=== PATIENT | male | born 1955 | race African-American/Black ===

== ENCOUNTER 2020-01-24 12:00 | Outpatient (RCR) | payer OTHER | END 2020-01-26 | LOC: ST 12:00 | PROVIDERS: ATTEND Family Medicine | DX: R47.02 Dysphasia (principal); I63.50 Cerebral infarction due to unspecified occlusion or stenosis of unspecified cerebral artery; Z86.73 Personal history of transient ischemic attack (TIA), and cerebral infarction without residual deficits | CPT/HCPCS: 92523 ==

== ENCOUNTER 2020-02-05 11:00 | Outpatient (RCR) | payer OTHER ==
--- NOTE | 2020-02-11 11:25 | NUR ---
ST NOTE: Pt no show for speech therapy, will phone to see if he wishes to continue therapy or defer further treatment at this time
== END 2020-02-26 ==
LOC: ST 11:00
PROVIDERS: ATTEND Family Medicine
DX: R47.02 Dysphasia (principal); I69.322 Dysarthria following cerebral infarction; I63.50 Cerebral infarction due to unspecified occlusion or stenosis of unspecified cerebral artery

== ENCOUNTER → 2020-08-05 | Day surgery (SDC) | payer OTHER ==
[2020-07-31 09:33] LABS: BASOPHILS % 0.9 % (0.0-1.0); EOSINOPHILS # (AUTO) 0.1 (0.0-0.4); EOSINOPHILS % 2.4 % (0.0-6.0); HEMATOCRIT 37.5 % (38.2-49.6); HEMOGLOBIN 12.1 g/dL (14.0-18.0); LYMPHOCYTES # (AUTO) 0.7 (1.0-3.2); LYMPHOCYTES % 15.2 % (18.0-39.1); MEAN CORPUSCULAR HEMOGLOBIN 25.3 pg (28-32); MEAN CORPUSCULAR HGB CONC 32.3 g/dL (31-35); MEAN CORPUSCULAR VOLUME 78.5 fL (81-99); MONOCYTES # (AUTO) 0.4 (0.2-0.8); MONOCYTES % 9.2 % (4.4-11.3); NEUTROPHILS # (AUTO) 3.4 (2.1-6.9); NEUTROPHILS % 72.1 % (38.7-80.0); PLATELET COUNT 206 x10e3/uL (140-360); RED BLOOD COUNT 4.78 x10e6/uL (4.3-5.7); RED CELL DISTRIBUTION WIDTH 13.2 % (11.7-14.4)
[~2020-08-05] MED LIST: ASPIRIN81 MG PO; CARVEDILOL12.5 MG PO; CLOPIDOGREL75 MG PO; ESCITALOPRAM PO; EUTHYROX50 MCG PO; FENTANYL CITRATE/PF 100MCG/2 ML INJ ONE; GINKGO BILOBA40 M1 PEG; LISINOPRIL10 MG PO; MAGNESIUM CITR296 ML PO; METFORMIN HCL500 MG PO; MIDAZOLAM HCL 2 MG/2 ML VIAL ONE; MIRALAX17 GM PO; PROPOFOL IV EMULSION 10 MG/ML 20 ML VIAL ONE; PROTONIX20 MG PO; RISPERDAL0.5 MG PO
[2020-08-05 09:40] VITALS: BP 150/85
--- NOTE | 2020-08-05 11:59 | Operative Report ---
DATE OF PROCEDURE: SURGEON: Willie Toribio MD NAME OF THE PROCEDURES: EGD, colonoscopy. PREPROCEDURE DIAGNOSIS: The patient with history of anemia, constipation, and weight loss. Therefore, an EGD, colonoscopy to rule out peptic ulcer disease, upper and lower GI neoplasm, and colorectal neoplasm. DESCRIPTION OF PROCEDURE: After informed written consent, premedications with monitored anesthesia care, standard adult video Olympus gastroscope was introduced into the mouth, esophagus, and stomach into the 2nd portion of the duodenum. First and second portions of the duodenum appeared to be normal. Biopsies were done to rule out malabsorption. Antrum showed mild gastritis and biopsies were done antrum and body unremarkable. The lower esophagus showed irregular Z-line and biopsies were done. There was a question of Schatzki ring, but patient was asymptomatic. IMPRESSION: Gastritis, questionable Schatzki ring. PROCEDURE: Colonoscopy. DESCRIPTION OF PROCEDURE: Standard video Olympus colonoscope was introduced into the rectum and all the way into the terminal ileum. Terminal ileum and appendiceal orifice appeared to be normal. Cecum showed 8 mm sessile polyp, removed by cold snare and two Endoclips were placed for hemostasis. The rest of the ascending, transverse, descending, sigmoid, and rectum all appeared to be within normal. IMPRESSION: Colon polyp, gastritis. RECOMMENDATION: Avoid NSAID. Consider H2 jess depending on biopsy results and the patient's clinical course. Colonoscopy in three years. The patient to hold Plavix for 72 hours and he has been advised to come and see us in the office in three weeks for followup. If the symptoms persist, CT and further evaluation may be recommended. Continue close followup with the primary care physician is also advised. Willie Toribio MD SR/MODL /[id number]
== END | disposition home or self-care (01) ==
LOC: OR 06:51
PROVIDERS: ATTEND Internal Medicine Gastroenterology
DX: K29.70 Gastritis, unspecified, without bleeding (principal); K63.5 Polyp of colon; K21.9 Gastro-esophageal reflux disease without esophagitis; R63.4 Abnormal weight loss; D64.9 Anemia, unspecified; Z01.89 Encounter for other specified special examinations; K59.00 Constipation, unspecified; R13.10 Dysphagia, unspecified; Z86.010 Personal history of colon polyps; E11.9 Type 2 diabetes mellitus without complications; E66.3 Overweight; Z68.28 Body mass index [BMI] 28.0-28.9, adult; Z71.3 Dietary counseling and surveillance; Z87.891 Personal history of nicotine dependence; Z86.73 Personal history of transient ischemic attack (TIA), and cerebral infarction without residual deficits; G24.01 Drug induced subacute dyskinesia; E03.9 Hypothyroidism, unspecified; G47.33 Obstructive sleep apnea (adult) (pediatric); F03.90 Unspecified dementia, unspecified severity, without behavioral disturbance, psychotic disturbance, mood disturbance, and anxiety; I25.2 Old myocardial infarction; I10 Essential (primary) hypertension; Z88.5 Allergy status to narcotic agent; Z11.59 Encounter for screening for other viral diseases; Z01.812 Encounter for preprocedural laboratory examination; Z01.810 Encounter for preprocedural cardiovascular examination
CPT/HCPCS: 36415 ×2; 43239; 45385; 82948; 85025; 93005; J2250; J2704; J3010; U0002; 45378

== ENCOUNTER 2022-08-18 10:57 | Emergency (ER) | payer MEDICARE ==
[~2022-08-18] VITALS: Ht 170.2 cm; Wt 72.6 kg
[~2022-08-18 10:57] MED LIST changes: +ASPIRIN81 MG PEG; -ASPIRIN81 MG PO; -FENTANYL CITRATE/PF 100MCG/2 ML INJ ONE; +METFORMIN HCL500 MG PEG; -METFORMIN HCL500 MG PO; -MIDAZOLAM HCL 2 MG/2 ML VIAL ONE; -PROPOFOL IV EMULSION 10 MG/ML 20 ML VIAL ONE
[2022-08-18] MEDS ORDERED: ARTIFICIAL TEAR15 ML OU (11:48)
[2022-08-18] MEDS ORDERED: METOPROLOL TART25 MG PEG (11:48)
[2022-08-18] MEDS ORDERED: HEPARIN SO5000 UNIT2 SQ (11:48)
[2022-08-18] MEDS ORDERED: HYDROCODON-ACE1 EA12 PEG (11:48)
[2022-08-18] MEDS ORDERED: LANTUS 3ML100 UNITS/ SQ (11:48)
[2022-08-18] MEDS ORDERED: NEURIVA PLUS B1 EACH PEG (11:48)
[2022-08-18] MEDS ORDERED: INGREZZA40 MG PEG (11:48)
[2022-08-18] MEDS ORDERED: ZESTORETIC 20-1 EACH PEG (11:48)
[2022-08-18] MEDS ORDERED: MULTIPLE VITAM1 EAC1 PEG (11:48)
[2022-08-18] MEDS ORDERED: FLONASE ALLERG9.9 ML INH (11:48)
[2022-08-18] MEDS ORDERED: AMIODARONE HCL200 MG PEG (11:48)
[2022-08-18] MEDS ORDERED: ATIVAN0.5 MG PEG (11:48)
[2022-08-18] MEDS ORDERED: PRAVASTATIN SOD40 MG PEG (11:48)
[2022-08-18] MEDS ORDERED: IPRAT-ALBUT 0.5-3 ML INH (11:48)
== END 2022-08-18 14:21 | disposition home or self-care (01) ==
LOC: ER 11:11
DX: M25.421 Effusion, right elbow (principal); M25.521 Pain in right elbow; I10 Essential (primary) hypertension; E11.9 Type 2 diabetes mellitus without complications; E03.9 Hypothyroidism, unspecified; F41.9 Anxiety disorder, unspecified
CPT/HCPCS: 93931; 93971; 99283

== ENCOUNTER 2022-08-18 22:49 | Emergency (ER) | payer MEDICARE, OTHER ==
[~2022-08-18] VITALS: Ht 170.2 cm; Wt 72.6 kg
[~2022-08-18 22:49] MED LIST changes: +AMIODARONE HCL200 MG PEG; +ARTIFICIAL TEAR15 ML OU; +ATIVAN0.5 MG PEG; +FLONASE ALLERG9.9 ML INH; +HEPARIN SO5000 UNIT2 SQ; +HYDROCODON-ACE1 EA12 PEG; +INGREZZA40 MG PEG; +IPRAT-ALBUT 0.5-3 ML INH; +LANTUS 3ML100 UNITS/ SQ; +METOPROLOL TART25 MG PEG; +MULTIPLE VITAM1 EAC1 PEG; +NEURIVA PLUS B1 EACH PEG; +PRAVASTATIN SOD40 MG PEG; +ZESTORETIC 20-1 EACH PEG
== END 2022-08-18 23:13 | disposition home or self-care (01) ==
LOC: ER 23:00
DX: Z43.1 Encounter for attention to gastrostomy (principal); I10 Essential (primary) hypertension; E11.9 Type 2 diabetes mellitus without complications; E03.9 Hypothyroidism, unspecified; F41.9 Anxiety disorder, unspecified; M24.59 Contracture, other specified joint; Z86.73 Personal history of transient ischemic attack (TIA), and cerebral infarction without residual deficits
CPT/HCPCS: 43762; 99282

== ENCOUNTER 2023-01-19 00:24 | Emergency (ER) | payer MEDICARE, OTHER ==
[~2023-01-19] VITALS: Ht 170.2 cm; Wt 72.6 kg
[2023-01-19] MEDS ORDERED: DIATRIZOATE MEGL/DIATRIZOA SOD 30 ML BTL PO ONE (04:27)
[2023-01-19] MEDS ORDERED: METHYLPREDNISOLONE SOD SUCC 125 MG/2ML VIAL IV ONE (05:15)
[2023-01-19] MEDS ORDERED: ALBUTEROL/IPRATROPIUM 3 ML NEB NEB PRN (05:15)
[2023-01-19] MEDS ORDERED: SODIUM CHLORIDE FLUSH 10 ML SYR IV PRN (06:00)
== END 2023-01-19 06:14 ==
LOC: ER 00:33
DX: Z43.1 Encounter for attention to gastrostomy (principal); I10 Essential (primary) hypertension; E11.9 Type 2 diabetes mellitus without complications; E03.9 Hypothyroidism, unspecified; F41.9 Anxiety disorder, unspecified; Z86.73 Personal history of transient ischemic attack (TIA), and cerebral infarction without residual deficits
CPT/HCPCS: 43762; 74018; 99284; Q9963

== ENCOUNTER 2023-01-21 17:57 | Emergency (ER) | payer MEDICARE, OTHER ==
[~2023-01-21] VITALS: Ht 170.2 cm; Wt 72.6 kg
[2023-01-21] MEDS ORDERED: DIATRIZOATE MEGL/DIATRIZOA SOD 30 ML BTL PO ONE (18:27)
== END 2023-01-21 18:24 | disposition home or self-care (01) ==
LOC: ER 18:09
DX: Z43.1 Encounter for attention to gastrostomy (principal); I69.320 Aphasia following cerebral infarction; I10 Essential (primary) hypertension; E11.9 Type 2 diabetes mellitus without complications; E03.9 Hypothyroidism, unspecified; F41.8 Other specified anxiety disorders
CPT/HCPCS: 74018; 99283; Q9963

== ENCOUNTER 2023-01-22 22:14 | Emergency (ER) | payer MEDICARE, OTHER ==
[~2023-01-22] VITALS: Ht 170.2 cm; Wt 72.6 kg
== END 2023-01-22 22:31 | disposition home or self-care (01) ==
LOC: ER 22:16
DX: Z43.1 Encounter for attention to gastrostomy (principal); I10 Essential (primary) hypertension; E11.9 Type 2 diabetes mellitus without complications; E03.9 Hypothyroidism, unspecified; F41.9 Anxiety disorder, unspecified; Z86.73 Personal history of transient ischemic attack (TIA), and cerebral infarction without residual deficits
CPT/HCPCS: 99283

== ENCOUNTER 2023-01-23 16:58 | Inpatient (IN) | payer MEDICARE, OTHER ==
[~2023-01-23] VITALS: Ht 170.2 cm; Wt 72.6 kg
[2023-01-23] MEDS ORDERED: DIATRIZOATE MEGL/DIATRIZOA SOD 30 ML BTL PO ONE (18:00)
[2023-01-23] MEDS ORDERED: SODIUM CHLORIDE 0.9% 1000ML 1,000 ML IV SCH ×2 (18:00→21:00)
[2023-01-23 18:21] LABS: BASOPHILS % 0.5 % (0.0-1.0); EOSINOPHILS # (AUTO) 0.1 (0.0-0.4); EOSINOPHILS % 1.8 % (0.0-6.0); HEMATOCRIT 32.8 % (38.2-49.6); HEMOGLOBIN 10.1 g/dL (14.0-18.0); LYMPHOCYTES # (AUTO) 0.6 (1.0-3.2); LYMPHOCYTES % 10.7 % (18.0-39.1); MEAN CORPUSCULAR HEMOGLOBIN 26.7 pg (28-32); MEAN CORPUSCULAR HGB CONC 30.8 g/dL (31-35); MEAN CORPUSCULAR VOLUME 86.8 fL (81-99); MONOCYTES # (AUTO) 0.3 (0.2-0.8); MONOCYTES % 6.1 % (4.4-11.3); NEUTROPHILS # (AUTO) 4.5 (2.1-6.9); NEUTROPHILS % 80.7 % (38.7-80.0); PLATELET COUNT 199 x10e3/uL (140-360); RED BLOOD COUNT 3.78 x10e6/uL (4.3-5.7); RED CELL DISTRIBUTION WIDTH 14.5 % (11.7-14.4)
[2023-01-23 18:47] LABS: ALBUMIN 3.6 g/dL (3.5-5.0); ALBUMIN/GLOBULIN RATIO 1.1 (0.8-2.0); ANION GAP 13.1 mmol/L (8-16); CALCIUM 9.3 mg/dL (8.4-10.2); CREATININE, SERUM 1.17 mg/dL (0.72-1.25); POTASSIUM 4.1 mmol/L (3.5-5.1)
[2023-01-23 20:00] VITALS: BP 148/77
[2023-01-23 21:00] VITALS: BP 148/77
[2023-01-24] VITALS (8 sets, daily range): BP systolic 139–177; BP diastolic 71–101
[2023-01-24] MEDS ORDERED: HYDROCHLOROTHIA25 MG PEG (04:01)
[2023-01-24] MEDS ORDERED: LISINOPRIL10 MG PEG (04:01)
[2023-01-24] MEDS ORDERED: SYNTHROID50 MCG PEG (04:01)
[2023-01-24 06:01] LABS: BASOPHILS % 0.7 % (0.0-1.0); EOSINOPHILS # (AUTO) 0.1 (0.0-0.4); EOSINOPHILS % 2.1 % (0.0-6.0); HEMATOCRIT 30.8 % (38.2-49.6); HEMOGLOBIN 9.6 g/dL (14.0-18.0); LYMPHOCYTES # (AUTO) 0.7 (1.0-3.2); LYMPHOCYTES % 15.7 % (18.0-39.1); MEAN CORPUSCULAR HEMOGLOBIN 26.9 pg (28-32); MEAN CORPUSCULAR HGB CONC 31.2 g/dL (31-35); MEAN CORPUSCULAR VOLUME 86.3 fL (81-99); MONOCYTES # (AUTO) 0.4 (0.2-0.8); MONOCYTES % 8.4 % (4.4-11.3); NEUTROPHILS # (AUTO) 3.1 (2.1-6.9); NEUTROPHILS % 72.9 % (38.7-80.0); PLATELET COUNT 170 x10e3/uL (140-360); RED BLOOD COUNT 3.57 x10e6/uL (4.3-5.7); RED CELL DISTRIBUTION WIDTH 14.4 % (11.7-14.4)
[2023-01-24 06:17] LABS: INR 1.12; PROTHROMBIN TIME 14.6 seconds (11.9-14.5)
[2023-01-24 06:18] LABS: PARTIAL THROMBOPLASTIN TIME 33.4 seconds (23.8-35.5)
[2023-01-24 06:25] LABS: ANION GAP 14.7 mmol/L (8-16); CREATININE, SERUM 1.07 mg/dL (0.72-1.25); POTASSIUM 3.7 mmol/L (3.5-5.1)
[2023-01-24] MEDS: DEXTROSE 5%/0.45% SOD CHL 1,000 ML IV SCH ×2 (06:33→19:30)
[2023-01-24 06:46] LABS: MAGNESIUM 1.8 MG/DL (1.3-2.1)
[2023-01-24 07:07] LABS: FERRITIN 212.77 ng/mL (21.81-274.66); THYROID STIMULATING HORMONE 2.549 uIU/mL (0.350-4.940)
[2023-01-24] MEDS ORDERED: HYDRALAZINE HCL 20 MG/ML VIAL IV PRN (20:30)
[2023-01-25] VITALS: BP 129/93
[2023-01-25 05:16] VITALS: BP 124/72
[2023-01-25 06:07] LABS: BASOPHILS % 0.7 % (0.0-1.0); EOSINOPHILS # (AUTO) 0.1 (0.0-0.4); EOSINOPHILS % 3.2 % (0.0-6.0); HEMATOCRIT 32.9 % (38.2-49.6); HEMOGLOBIN 10.1 g/dL (14.0-18.0); LYMPHOCYTES # (AUTO) 0.7 (1.0-3.2); LYMPHOCYTES % 17.1 % (18.0-39.1); MEAN CORPUSCULAR HEMOGLOBIN 26.8 pg (28-32); MEAN CORPUSCULAR HGB CONC 30.7 g/dL (31-35); MEAN CORPUSCULAR VOLUME 87.3 fL (81-99); MONOCYTES # (AUTO) 0.4 (0.2-0.8); MONOCYTES % 10.9 % (4.4-11.3); NEUTROPHILS # (AUTO) 2.7 (2.1-6.9); NEUTROPHILS % 67.9 % (38.7-80.0); PLATELET COUNT 196 x10e3/uL (140-360); RED BLOOD COUNT 3.77 x10e6/uL (4.3-5.7); RED CELL DISTRIBUTION WIDTH 14.3 % (11.7-14.4)
[2023-01-25 06:35] LABS: ALBUMIN 3.1 g/dL (3.5-5.0); ANION GAP 12.3 mmol/L (8-16); CALCIUM 8.6 mg/dL (8.4-10.2); CREATININE, SERUM 0.95 mg/dL (0.72-1.25); MAGNESIUM 1.8 MG/DL (1.3-2.1); POTASSIUM 3.3 mmol/L (3.5-5.1)
[2023-01-25 08:00] VITALS: BP 139/72
[2023-01-25 08:26] VITALS: BP 151/74
[2023-01-25] MEDS ORDERED: GLUCAGON FOR INJ 1 MG VIAL ONE (09:43)
[2023-01-25] MEDS ORDERED: SODIUM CHLORIDE 0.9% 250ML 250 ML ONE ×2 (09:51→10:28)
[2023-01-25] MEDS: DEXTROSE 5%/0.45% SOD CHL 1,000 ML IV SCH (10:11)
[2023-01-25] MEDS: POTASSIUM CHLORIDE 10MEQ/100ML 100 ML IV SCH ×2 (10:12→10:30)
[2023-01-25] MEDS ORDERED: LIDOCAINE 1% 10 ML MULTIDOSE VIAL IJ ONE (10:27)
[2023-01-25] MEDS ORDERED: IOPAMIDOL 370 MG/ML 100 ML INFUS..BTL INJ ONE (10:28)
[2023-01-25] MEDS ORDERED: MIDAZOLAM HCL 2 MG/2 ML VIAL ONE (10:51)
[2023-01-25] MEDS ORDERED: FENTANYL CITRATE/PF 100MCG/2 ML INJ ONE (10:52)
[2023-01-25] MEDS ORDERED: POTASSIUM CHLORIDE 10MEQ/100ML 100 ML IV ONE (14:15)
[2023-01-25 16:41] VITALS: BP 150/76
== END 2023-01-25 17:04 | DRG 394 ==
LOC: ER 17:02 → ERHOLD 17:58 → MED/SURG2 18:48 → OBSVTOIN 01-25 08:54
PROVIDERS: ADMIT Internal Medicine; ATTEND Internal Medicine
PROC: 0D20XUZ Change Feeding Device in Upper Intestinal Tract, External Approach (ICD-10-PCS; principal; 2023-01-25)
DX: Z43.1 Encounter for attention to gastrostomy (principal); I69.354 Hemiplegia and hemiparesis following cerebral infarction affecting left non-dominant side; I69.320 Aphasia following cerebral infarction; I69.391 Dysphagia following cerebral infarction; I10 Essential (primary) hypertension; E11.9 Type 2 diabetes mellitus without complications; E03.9 Hypothyroidism, unspecified; E78.5 Hyperlipidemia, unspecified; F41.9 Anxiety disorder, unspecified; F32.A Depression, unspecified; Z79.82 Long term (current) use of aspirin; Z79.4 Long term (current) use of insulin
CPT/HCPCS: 36415; 49440; 74470; 80048; 80053; 82607; 82728; 82746; 82948; 83036; 83540; 83735; 84443; 84466; 85025; 85610; 85730; 94799; 99252; 99284; C1769; G0378; J0360; J0690; J1610; J2250; J3010; J3480; J7030; J7050; Q9963; Q9967

== ENCOUNTER 2023-09-21 19:16 | Emergency (ER) | payer MEDICARE, OTHER ==
[~2023-09-21] VITALS: Ht 170.2 cm; Wt 72.6 kg
[~2023-09-21 19:16] MED LIST changes: +HYDROCHLOROTHIA25 MG PEG; +LISINOPRIL10 MG PEG; +SYNTHROID50 MCG PEG
[2023-09-21 21:07] VITALS: BP 158/85; O2SAT 100
== END 2023-09-21 20:35 ==
LOC: ER 19:27
DX: Z43.1 Encounter for attention to gastrostomy (principal); I10 Essential (primary) hypertension; E11.9 Type 2 diabetes mellitus without complications; E03.9 Hypothyroidism, unspecified; F41.9 Anxiety disorder, unspecified; Z86.73 Personal history of transient ischemic attack (TIA), and cerebral infarction without residual deficits
CPT/HCPCS: 99282